=== PATIENT | male | born 1985 | race African-American/Black ===

== ENCOUNTER 2025-03-06 15:47 | Emergency (ER) | payer OTHER ==
[~2025-03-06] VITALS: Ht 175.2 cm; Wt 77.1 kg
[2025-03-06] MEDS ORDERED: LANTUS100 UNIT/1 SC (16:07)
== END 2025-03-06 16:16 | disposition home or self-care (01) ==
LOC: ED 15:47
DX: E11.9 Type 2 diabetes mellitus without complications (principal); Z76.0 Encounter for issue of repeat prescription